=== PATIENT | female | born 1955 | race Caucasian/White ===

== ENCOUNTER 2018-11-13 11:47 | Emergency (ER) | payer MEDICAID, MEDICARE ==
[~2018-11-13] VITALS: Ht 167.6 cm; Wt 72.6 kg
[2018-11-13 12:16] LABS: BILIRUBIN,URINE SMALL (NEG); CLARITY,URINE CLEAR; COLOR,URINE YELLOW; NITRITE,URINE NEGATIVE (NEG); PROTEIN,URINE NEGATIVE (NEG-TRACE)
[2018-11-13 12:20] LABS: BASO % 1 % (0-3); EOS % 1 % (0-3); HEMATOCRIT 40.9 % (36.0-47.0); HEMOGLOBIN 13.4 g/dL (12.0-15.5); LYMPH # 0.7 x10^3/uL (1.0-4.8); LYMPH % 10 % (24-48); MEAN CORPUSCULAR HEMOGLOBIN 30 pg (25-35); MEAN CORPUSCULAR HGB CONC 33 g/dL (31-37); MEAN CORPUSCULAR VOLUME 91 fL (79-100); MONO # 0.5 x10^3/uL (0.0-1.1); MONO % 7 % (0-9); NEUT # 5.9 x10^3uL (1.8-7.7); NEUT % 82 % (31-73); PLATELET COUNT 173 x10^3/uL (140-400); RED BLOOD COUNT 4.51 x10^6/uL (3.50-5.40); RED CELL DISTRIBUTION WIDTH 13.5 % (11.5-14.5); WHITE BLOOD COUNT 7.2 x10^3/uL (4.0-11.0)
[2018-11-13 12:21] VITALS: BP 119/57
[2018-11-13 12:24] LABS: BACTERIA,URINE FEW /HPF (0-FEW); WBC,URINE OCC /HPF (0-4)
--- NOTE | 2018-11-13 12:28 | RAD ---
Single view chest 11/13/2018 Clinical indications: Chest pain. COMPARISON: None. FINDINGS: Cardiac and mediastinal silhouettes unremarkable. No pleural effusion, pneumothorax or focal consolidation. There are multiple left axillary surgical clips. Reciprocal thoracolumbar scoliosis. Mild left glenohumeral osteoarthrosis with inferior osteophytic formation. IMPRESSION: No acute cardiopulmonary abnormality. Electronically signed by: Caio Constantino MD (11/13/2018 12:23 PM) [facility]
[2018-11-13 12:32] LABS: CALCIUM 9.2 mg/dL (8.5-10.1); CREATININE 0.7 mg/dL (0.6-1.0); GFR 84.8; POTASSIUM 3.3 mmol/L (3.5-5.1)
[2018-11-13 12:38] LABS: ALBUMIN 3.6 g/dL (3.4-5.0); ALBUMIN/GLOBULIN RATIO 0.9 (1.0-1.7); TOTAL BILIRUBIN 0.4 mg/dL (0.2-1.0); TOTAL PROTEIN 7.6 g/dL (6.4-8.2)
[2018-11-13] MEDS ORDERED: IV NORMAL SALINE 1000ML BAG 1,000 ML IV ONE (12:45)
--- NOTE | 2018-11-13 12:49 | PHYS DOC ---
Past Medical History Past Medical History: Constipation, Dementia, GERD, Schizophrenia Past Surgical History: No Surgical History Alcohol Use: None Drug Use: None Adult General Chief Complaint Chief Complaint: MECHANICAL FALL HPI HPI Patient is a 63 year old year-old shelter patient who presents with accidental fall outdoors. Patient states that the ground felt uneven resulting in a fall. Patient complaints of right shoulder pain which is since resolved. She denies hitting her head, headache, or neck pain. She is not on antiplatelet or anticoagulation therapy. Denies fever chills, nausea vomiting or sweats. No chest pain shortness of breath. Does report increased dizziness over the past 2 days. Denies focal extremity weakness or loss of sensation. No urinary frequency urgency or dysuria. No other acute symptoms or complaints. History is limted given patients memory impairment. [] Review of Systems Review of Systems ROS as per HPI All other systems were reviewed and found to be within normal limits, except as documented in this note. Current Medications Current Medications Current Medications Medications (Trade) Dose Ordered Sig/Bandar Start Time Stop Time Status Last Admin Dose Admin Meclizine HCl (Antivert) 25 mg 1X ONCE 11/13/18 14:30 11/13/18 14:31 DC 11/13/18 14:30 25 MG Sodium Chloride 1,000 ml @ 1,000 mls/hr 1X ONCE 11/13/18 12:45 11/13/18 13:44 DC 11/13/18 12:59 1,000 MLS/HR Allergies Allergies Allergies Coded Allergies Type Severity Reaction Last Updated Verified Sulfa (Sulfonamide Antibiotics) Allergy Intermediate 11/13/18 Yes Physical Exam Physical Exam Constitutional: Well developed, well nourished, no acute distress, non-toxic appearance. [] HENT: Normocephalic, plate R forehead, bilateral external ears normal, oropharynx moist, nose normal. [] Eyes: PERRLA, EOMI, horizontal nystagmus, fatigues. [] Neck: Normal range of motion, no tenderness. [] Cardiovascular:Heart rate regular rhythm, no murmur [] Lungs & Thorax: Bilateral breath sounds clear to auscultation. [] Abdomen: Bowel sounds normal, soft, no tenderness. [] Skin: Warm, dry. [] Back: No tenderness. [] Extremities: No tenderness, no edema. [] Neurologic: Alert and oriented X 1, normal motor function, normal sensory function, no focal deficits noted, resting tremors. [] Psychologic: Affect, flat. [] Current Patient Data Vital Signs Vital Signs Date Time Temp Pulse Resp B/P (MAP) Pulse Ox O2 Delivery O2 Flow Rate FiO2 11/13/18 12:21 98.5 100 18 119/57 (77) 96 Room Air 98.5 Lab Values Laboratory Tests Test 11/13/18 12:04 11/13/18 12:10 Urine Collection Type U cath Urine Color Yellow Urine Clarity Clear Urine pH 5.0 Urine Specific [place] >=1.030 Urine Protein Negative mg/dL (NEG-TRACE) Urine Glucose (UA) Negative mg/dL (NEG) Urine Ketones (Stick) 15 mg/dL (NEG) Urine Blood Moderate (NEG) Urine Nitrite Negative (NEG) Urine Bilirubin Small (NEG) Urine Urobilinogen Dipstick 1.0 mg/dL (0.2 mg/dL) Urine Leukocyte Esterase Negative (NEG) Urine RBC 3-5 /HPF (0-2) Urine WBC Occ /HPF (0-4) Urine Bacteria Few /HPF (0-FEW) Urine Mucus Marked /LPF White Blood Count 7.2 x10^3/uL (4.0-11.0) Red Blood Count 4.51 x10^6/uL (3.50-5.40) Hemoglobin 13.4 g/dL (12.0-15.5) Hematocrit 40.9 % (36.0-47.0) Mean Corpuscular Volume 91 fL (79-100) Mean Corpuscular Hemoglobin 30 pg (25-35) Mean Corpuscular Hemoglobin Concent 33 g/dL (31-37) Red Cell Distribution Width 13.5 % (11.5-14.5) Platelet Count 173 x10^3/uL (140-400) Neutrophils (%) (Auto) 82 % (31-73) H Lymphocytes (%) (Auto) 10 % (24-48) L Monocytes (%) (Auto) 7 % (0-9) Eosinophils (%) (Auto) 1 % (0-3) Basophils (%) (Auto) 1 % (0-3) Neutrophils # (Auto) 5.9 x10^3uL (1.8-7.7) Lymphocytes # (Auto) 0.7 x10^3/uL (1.0-4.8) L Monocytes # (Auto) 0.5 x10^3/uL (0.0-1.1) Eosinophils # (Auto) 0.0 x10^3/uL (0.0-0.7) Basophils # (Auto) 0.0 x10^3/uL (0.0-0.2) Sodium Level 144 mmol/L (136-145) Potassium Level 3.3 mmol/L (3.5-5.1) L Chloride Level 104 mmol/L (98-107) Carbon Dioxide Level 28 mmol/L (21-32) Anion Gap 12 (6-14) Blood Urea Nitrogen 17 mg/dL (7-20) Creatinine 0.7 mg/dL (0.6-1.0) Estimated GFR (Cockcroft-Gault) 84.8 BUN/Creatinine Ratio 24 (6-20) H Glucose Level 131 mg/dL (70-99) H Calcium Level 9.2 mg/dL (8.5-10.1) Total Bilirubin 0.4 mg/dL (0.2-1.0) Aspartate Amino Transferase (AST) 13 U/L (15-37) L Alanine Aminotransferase (ALT) 21 U/L (14-59) Alkaline Phosphatase 95 U/L (46-116) Troponin I Quantitative < 0.017 ng/mL (0.000-0.055) Total Protein 7.6 g/dL (6.4-8.2) Albumin 3.6 g/dL (3.4-5.0) Albumin/Globulin Ratio 0.9 (1.0-1.7) L Thyroid Stimulating Hormone (TSH) 1.459 uIU/mL (0.358-3.74) Laboratory Tests 11/13/18 12:10 Laboratory Tests 11/13/18 12:10 EKG EKG EKG, rate 94, interpretation limited due to the presence of artifact.] Radiology/Procedures Radiology/Procedures CT head: NAD per radiology report CXR: NAD per radiology report] Course & Med Decision Making Course & Med Decision Making Pertinent Labs and Imaging studies reviewed. (See chart for details) [Vital signs, imaging, lab reviewed nonacute. Patient does have mild nystagmus, suspect vertigo is contributing to dizziness and fall. No focal neuro deficits. Meclizine given with improvement. Recommend continued meclizine, with close PCP follow-up. Return precautions reviewed] Ginny Disclaimer Honorioon Disclaimer This electronic medical record was generated, in whole or in part, using a voice recognition dictation system. Departure Departure Impression: Primary Impression: Dizziness Additional Impression: Vertigo Disposition: 01 HOME, SELF-CARE Condition: STABLE Referrals: JAQUELINE REVIN MD (PCP) Scripts Meclizine Hcl (MECLIZINE HCL) 25 Mg Tablet 1 TAB PO TID, #30 TAB Prov: JOSE CONNOLLY DO 11/13/18 Problem Qualifiers JOSE CONNOLLY DO Nov 13, 2018 12:49
--- NOTE | 2018-11-13 13:17 | RAD ---
PQRS Compliance Statement: One or more of the following individualized dose reduction techniques were utilized for this examination: 1. Automated exposure control 2. Adjustment of the mA and/or kV according to patient size 3. Use of iterative reconstruction technique CT HEAD WITHOUT CONTRAST History: dizzy-pt states fall at [facility] h/o dementia also states prev brain tumor removed-mets from breast ca-not stated in chart Comparison: None. Technique: Axial images are obtained of the head from the skull base through the vertex without IV contrast. Findings: No mass-effect, midline shift, extra-axial fluid collection, hemorrhage, or obvious acute infarction is identified. Basilar cisterns are patent. The ventricles and sulci are prominent, consistent with age-related cerebral atrophy. There is advanced supratentorial white matter hypoattenuation. This is a nonspecific finding but is commonly due to chronic small vessel ischemic disease. There is right temporal lobe encephalomalacia. Bone windows demonstrate no acute calvarial abnormality. There is old right frontotemporal craniotomy. Mild mucosal thickening bilateral ethmoid sinuses. The other paranasal sinuses are clear. Mastoid air cells are well aerated. IMPRESSION: 1. No acute intracranial abnormality. 2. Age-related cerebral atrophy and advanced supratentorial white matter changes of chronic small vessel ischemic disease. 3. Old right frontotemporal craniotomy. There is right temporal lobe encephalomalacia. Electronically signed by: Scotty Casas MD (11/13/2018 1:12 PM) [id number]
[2018-11-13] MEDS ORDERED: MECLIZINE HCL 12.5 MG TABLET. PO ONE (14:30)
[2018-11-13] MEDS ORDERED: MECL25TA3 PO (14:56)
--- NOTE | 2018-11-14 09:15 | EKG ---
[facility] [address] [place] [address] Test Date: 2018-11-13 Test Time: 11:55:38 Pat Name: GIAN OCASIO Department: Room: Gender: F [employer] Worker: : [id number] Requested By: JOSE CONNOLLY Order Number: [id number] Reading MD: Matt Montiel Measurements Intervals [place] Rate: 94 P: -47 [place]: 142 QRS: -34 QRSD: 98 T: 109 QT: 356 QTc: 451 Interpretive Statements SINUS RHYTHM ABNORMAL LEFT AXIS DEVIATION LEFT ANTERIOR FASCICULAR BLOCK QRS(T) CONTOUR ABNORMALITY CONSISTENT WITH ANTEROSEPTAL INFARCT PROBABLY OLD T ABNORMALITY IN HIGH LATERAL LEADS INFERIOR LEADS ABNORMAL ECG Electronically Signed On 11-18-2018 9:28:02 [employer] OPERATOR by Matt Montiel
--- NOTE | 2018-11-27 11:09 | NUR ---
Late entry made to Medical Record. IV Stop time transcribed from eMAR to IV spreadsheet
== END 2018-11-13 16:11 | disposition home or self-care (01) ==
LOC: ER 11:47
DX: R42 Dizziness and giddiness (principal); M25.511 Pain in right shoulder; G89.11 Acute pain due to trauma; K21.9 Gastro-esophageal reflux disease without esophagitis; F20.9 Schizophrenia, unspecified; F03.90 Unspecified dementia, unspecified severity, without behavioral disturbance, psychotic disturbance, mood disturbance, and anxiety; Z88.2 Allergy status to sulfonamides; W18.30XA Fall on same level, unspecified, initial encounter; Y93.89 Activity, other specified; Y92.89 Other specified places as the place of occurrence of the external cause; Y99.8 Other external cause status
CPT/HCPCS: 36415; 70450; 71045; 80053; 81001; 84443; 84484; 85025; 93005; 96360; 99284; J7030; J8597